=== PATIENT | female | born 1970 | race Caucasian/White ===

== ENCOUNTER → 2016-06-26 | Outpatient (CLI) | payer BC ==
[~2016-06-26] VITALS: Ht 152.4 cm; Wt 68.0 kg
[~2016-06-26] MED LIST: BENTYL 10 MG CA10 M1 PO; IBUPROFEN 200200 M1 PO; NABUMETONE 500500 M1 PO; NEURONTIN 300300 M1 PO; OMEPRAZOLE40 MG PO; TRAMADOL 50 MG50 MG PO; TRILEPTAL150 MG PO; TRILEPTAL300 MG PO; VOLTAREN GEL 1100 G1 TOP
--- NOTE | ~2016-06-26 | HPC ---
[address] [address] PAIN MANAGEMENT CONSULTATION Name: LESTER MOORE Room #: REG Sanjiv Brown.#: [id number] Admission: 06/26/16 Attend Phys: Joao Bravo DO Discharge: Date of : 68 Report #: [id number] THIS REPORT FOR: //name// CC: DARLIN Bravo The patient is a very pleasant 45-year-old female I had seen back in the summer and fall for RSD of the right lower extremity. Ultimately, we had progressed to a spinal cord stimulator trial. The last time I saw the patient on 02/25/2016, we removed spinal cord stimulator trial from which she had an excellent relief. I referred her to Dr. Cruz at [facility] for implantation of a spinal cord stimulator. Spinal cord stimulator was ultimately implanted. Dr. Cruz implanted a right L4 and L5 dorsal root ganglion nerve stimulator lead with a St. Sudeep IPG. The patient returns to the pain clinic, per Dr. Cruz for consideration for diagnostic right S1 selective nerve root block. The patient notes that the stimulator is not really affording good relief of her right foot pain. Pain is primarily in the lateral aspect of the right foot, this is compatible with an S1 distribution. Physical exam is otherwise relatively unchanged from my last visit. Pleasant 45-year-old female, BMI is 29.7 kilograms per meter squared. Subjective pain score is 3/10. Vital signs, modestly elevated blood pressure 141/98, pulse 72, respirations are 14. She is wearing a walking boot on the right leg. ASSESSMENT: RSD right lower extremity, status post right L4 and L5 dorsal root ganglion stimulating leads with St. Sudeep IPG implanted on 05/27/2016 with nominal efficacy. RECOMMENDATIONS: I agree with right S1 diagnostic nerve root block. PROCEDURE: After written and informed consent was obtained, the patient was taken to the fluoroscopy suite and placed in prone position. After sterile prep and drape, skin wheal with Xylocaine was raised lateral to the S1 neural foramen. A 20-gauge Tuohy needle was placed to contact the lateral aspect of the S1 neural foramen on AP projection. A needle was then withdrawn and generally repositioned in a slightly medial direction until able to walk through the neural foramen. The patient denied any paresthesia. 1 mL of Omnipaque was injected, which showed spread on AP and lateral projections within the caudal canal and along the right S1 nerve root. This was followed with 1 mL of 0.5% preservative-free bupivacaine plus 1 mL of 1.5% preservative-free Xylocaine 1:200,000 epinephrine. After 2 mL of local anesthetic mix was injected, the needle was removed. The area was cleansed, Band-Aids applied. The patient was allowed to ambulate to recovery room, monitored for an appropriate period of [address] [address] PAIN MANAGEMENT CONSULTATION Name: LESTER MOORE Room #: REG STACEY Lay#: [id number] Admission: 06/26/16 Attend Phys: Joao Bravo DO Discharge: Date of : 68 Report #: [id number]. She noted really no change in baseline pain on discharge. Followup is in 1 week to reevaluate. <ELECTRONICALLY SIGNED> By: Joao Bravo DO 06/30/16 1228 1600 0350 Joao Bravo DO /nt
[2016-06-26 13:15] VITALS: BP 109/78
== END | disposition home or self-care (01) ==
LOC: PAIN 06-25 08:25
DX: G90.521 Complex regional pain syndrome I of right lower limb (principal); M25.571 Pain in right ankle and joints of right foot; Z96.89 Presence of other specified functional implants

== ENCOUNTER → 2017-03-05 | Outpatient (CLI) | payer BC ==
[~2017-03-05] VITALS: Ht 152.4 cm; Wt 65.6 kg
[~2017-03-05] MED LIST changes: +NORCO 7.5-3251 EACH PO
--- NOTE | ~2017-03-05 | HPC ---
[facility] [place] [address] PAIN MANAGEMENT CONSULTATION Name: LESTER MOORE Room #: REG STACEY Lay#: [id number] Admission: 03/05/17 Attend Phys: Joao Bravo DO Discharge: Date of : 68 Report #: [id number] THIS REPORT FOR: //name// CC: DARLIN Bravo DATE OF SERVICE: 03/05/2017 The patient is covered is a very pleasant 46-year-old female typically treated for right lower extremity RSD requiring high-risk complex medication management. Not seen since July. She returns to pain clinic today, we had a prolonged visit today reviewing interval history. When I last saw the patient, she had had a right L4 and L5 dorsal root ganglion spinal cord stimulator in place with really nominal efficacy. I had her return to Dr. Arnaud Cruz's care, he placed a 3rd dorsal root ganglion at S1. The patient notes unfortunately this has not afforded any further relief and in fact seems to be exacerbating pain. She is having increasing pain, right lower extremity with the burning dysesthesia actually coming up her leg now (prior been mostly in the foot). She has pressure on the foot significantly exacerbates pain, rates it 8 on VAS. She has followed up with Dr. Cruz and they are planning on proceeding with another Nevro high frequency spinal cord stimulator trial (she had excellent relief when I had performed a spinal cord stimulator trial 01/2016, she was actually sent to Dr. Cruz for implantation of same). Dr. Cruz had suggested they trial a surgical implanted percutaneous lead for several weeks to get longer duration trial before moving on with implantation of the generator. The patient has continued to take oxcarbazepine 300 mg b.i.d., relatively maximum therapeutic dose, gabapentin 300 mg 3 tablets at bedtime, 900 mg, I did discuss with the patient, we can certainly increase this dose to 1200 or 1500 mg. She uses tramadol for breakthrough pain with dwindling efficacy. PHYSICAL EXAMINATION: Shows pleasant 46-year-old female, BMI is 28.2 kilograms per meter squared. Vital signs stable as noted in the EMR. Passive rotation of the hip does exacerbate little bit of pain on the right. She has somewhat of an antalgic gait. She is wearing a walking post-surgical boot (CAM-type walker device) on the right foot. With gait changes have some increasing pain in the back and hip. Has hyperpathia within about the right foot. ASSESSMENT: Right lower extremity requiring high-risk complex medication management. [facility] [address] [place] [address] PAIN MANAGEMENT CONSULTATION Name: LESTER MOORE Room #: REG [facility].#: [id number] Admission: 03/05/17 Attend Phys: Joao Bravo DO Discharge: Date of : 68 Report #: [id number] RECOMMENDATION: 1. We will increase gabapentin from 900 to 1500 mg. Continue oxcarbazepine unchanged at 600 mg daily. 2. We will offer some hydrocodone for breakthrough pain. Hydrocodone 7.5/325, dispensed 60 tablets a half to one tablet q.6 hours as needed for pain, to be used on a nondaily basis, continue tramadol 50 mg q.6h., 100 tablets with 2 refills. 3. Lumbar sympathetic block is accomplished today. 4. Follow up in 2 weeks for reevaluation and consideration for repeat lumbar sympathetic block if indicated, if she gets incremental relief with this injection. PROCEDURE NOTE: A right lumbar sympathetic block. After written informed the patient was taken to fluoroscopy suite, placed in prone position. After sterile prep and drape, skin was raised. A 22-gauge Chiba needle was placed to contact the inferior aspect of the right L2 vertebral body and walked anteriorly. Once needle was anterior to the vertebral body and approximately 1:[address] across the lateral aspect towards the midline on AP projection, negative aspiration was accomplished. A 1 mL of Omnipaque was injected, which showed spread within the sympathetic gutters followed with 5 mL of 0.5% bupivacaine plus 5 mL of 1.5% preservative-free Xylocaine 1:100,000 epinephrine and 40 mg triamcinolone. Needle was removed. The area was cleansed, Band-Aids applied. The patient monitored for an appropriate period of time showed good and stable condition. Fluoroscopy time was under 20 seconds. <ELECTRONICALLY SIGNED> By: Joao Bravo DO 03/06/17 0657 1537 2102 Joao Bravo DO /nt
[2017-03-05 10:52] VITALS: BP 119/72
== END | disposition home or self-care (01) ==
LOC: PAIN 07:05
DX: G90.521 Complex regional pain syndrome I of right lower limb (principal); Z79.899 Other long term (current) drug therapy

== ENCOUNTER → 2017-06-26 | Outpatient (CLI) | payer OTHER ==
[~2017-06-26] VITALS: Ht 152.4 cm; Wt 67.2 kg
[~2017-06-26] MED LIST changes: +CRESTOR10 MG PO; +HYDROCODONE-AP1 EAC6 PO; +NAMENDA 5 MG TAB5 M1 PO
--- NOTE | ~2017-06-26 | HPC ---
[facility] [place] [address] PAIN MANAGEMENT CONSULTATION Name: LESTER MOORE Room #: REG STACEY Lay#: [id number] Admission: 06/26/17 Attend Phys: Joao Bravo DO Discharge: Date of : 68 Report #: [id number] THIS REPORT FOR: //name// CC: DARLIN Bravo HISTORY OF PRESENT ILLNESS: The patient is a very pleasant 46-year-old female being treated for right lower extremity RSD, requiring complex medication management. The patient was originally seen in consultation on 11/15/2016. She had a right lower extremity neuropathic pain secondary to trauma to the right foot in 01/2015. Subsequent surgery with ongoing neuropathic pain. We have done a number of lumbar sympathetic blocks with nominal efficacy and in fact did a lumbar sympathetic block at last visit with really only short-term transient improvement of symptoms, 20% relief for 2 weeks. The patient had an excellent relief, right lower extremity, with a midline high frequency Nevro stimulator. Concerningly, I had referred her to Dr. Bismark Cruz for implantation of same; he elected to implant a dorsal root ganglion stimulators, he did L4-L5 with really no efficacy, sent her back for consideration for a midline epidural placed spinal cord stimulator; he simply added a S5 dorsal root ganglion lead. Unfortunately, the patient notes that utilizing any of these leads exacerbates pain. She presents to the pain clinic today as one might expect frustrated. She rates the pain an 8 on a VAS. Notes pain is exacerbated with any pressure on her foot. Today, she is still wearing a Cam type walker of the right ankle and foot. She has pain that is spreading up to the leg. No history of arthritis. BMI is 28.9 kilograms per meter squared. Vital signs were stable as noted in the EMR. Has not fallen in the last 3 months. Medication list was reconciled. Reviewed our opiate consent to treat contract. Long discussion with the patient today about therapeutic options. She was seen from approximately 10:35 to 11:00 a.m., greater than 50% of this 25-minute visit was spent counseling the patient. Apparently, Dr. Cruz has interceded with the patient's insurance company and actually had a [id number] review and they will not authorize the placement of a midline thoracolumbar paddle lead for spinal cord stimulation. They require the patient to be "post-back surgery." In truth, the patient has had 2 discrete back surgeries with implantation of the dorsal root ganglion leads and in fact I believe the lumbar sympathetic block and epidural blocks are all coded as "back surgery." Nonetheless, I think this would be in the patient's better interest. 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 She is loathe to use opiate analgesics for pain. She does use a little tramadol. She is on moderate dose of gabapentin at 1200 mg at bedtime; higher doses caused a soporific effect. She [address] [address] PAIN MANAGEMENT CONSULTATION Name: LESTER MOORE Room #: REG STACEY Lay#: [id number] Admission: 06/26/17 Attend Phys: Joao Bravo DO Discharge: Date of : 68 Report #: [id number] is on a therapeutic dose of oxcarbazepine (600 mg daily, 300 mg b.i.d.). Uses tramadol 50 mg up to 4 times a day. Long discussion with the patient today about therapeutic option. We have elected to start the patient on Namenda 5 mg at bedtime for about a week and then b.i.d. I have taken the liberty of writing for 60 tablets with 5 refills; however, I told the patient after 1 month if she is having some efficacy and no negative effects, she can go to t.i.d. for a week or so and then up to q.i.d. If she does use any of these higher doses, I suggested she call the pain clinic back and we will call her pharmacy with a renewed prescription for Namenda 5 mg either 90 or 120 tablets with 3-4 refills. The patient was discharged today in good and stable condition after a prolonged visit, greater than 50% of the time spent counseling the patient. <ELECTRONICALLY SIGNED> By: Joao Bravo DO 06/29/17 1026 1312 0033 Joao Bravo DO /nt
[2017-06-26 10:29] VITALS: BP 136/84
== END ==
LOC: PAIN 06:56
DX: G90.521 Complex regional pain syndrome I of right lower limb (principal); M79.2 Neuralgia and neuritis, unspecified; Z79.899 Other long term (current) drug therapy

== ENCOUNTER → 2017-11-26 | Outpatient (CLI) | payer OTHER ==
[~2017-11-26] VITALS: Ht 152.4 cm; Wt 67.6 kg
--- NOTE | ~2017-11-26 | HPC ---
[facility] [place] [address] PAIN MANAGEMENT CONSULTATION Name: LESTER MOORE Room #: REG STACEY Brown.#: [id number] Admission: 11/26/17 Attend Phys: Joao Bravo DO Discharge: Date of : 68 Report #: [id number] THIS REPORT FOR: //name// CC: DARLIN REYNOLDS Physician staff Joao Bravo DATE OF SERVICE: 11/26/2017 The patient is a very pleasant 47-year-old female being treated for CRPS type 1 right lower extremity neuropathic pain, requiring complex medication management. The patient was last seen in the Pain Clinic on 06/26/2017. Continued on gabapentin 300 mg tablets, 4 at bedtime; oxcarbazepine 300 mg b.i.d., Namenda 5 mg b.i.d. She has a prescription for tramadol, but relief is not efficacious. She has been using Advil, but it causes gastroesophageal reflux. She returns to the Pain Clinic today. We had a prolonged visit from 5210-7130; greater than 50% of this 25+ minute visit was spent counseling the patient, reviewing therapeutic options. The patient had a successful spinal cord stimulator trial, but through a long and arduous course, was referred to Dr. Arnaud Cruz who implanted right L4 and L5 dorsal root ganglion stimulators. These afforded no efficacy. She returned to him. He implanted a 3rd S1 dorsal root ganglion, again with no efficacy. Ultimately, she returned to Dr. Cruz. He did a midline trial, which this time did not afford efficacy and ultimately he explanted all devices. He has spoken to her about consideration of a deep brain stimulator for neuropathic pain. This may actually be a good option. She tells me that she is now starting to get some paresthesia, burning dysesthesia in the right hand, may be spread of RSD type symptoms. The patient is planning on going on a mission trip to [place] with her [employer] group. 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 Following this, she is planning to travel to [facility] to have a large family union with her 's family. She presented to the Pain Clinic today for options regarding managing chronic neuropathic burning pain in her right foot. She states standing and walking exacerbates the pain significantly. Medications may afford some relief. She notes her pain averages a 6 on a VAS. Unfortunately, her functional assessment tool is quite impacted . PHYSICAL EXAMINATION: Shows a pleasant 47-year-old female, BMI is 29.1 kg/[place] [address] PAIN MANAGEMENT CONSULTATION Name: LESTER MOORE ANN Room #: REG [facility].#: [id number] Admission: 11/26/17 Attend Phys: Joao Bravo DO Discharge: Date of : 68 Report #: [id number] . Vital signs stable. Alert and oriented to person, place and time, judged to be a reasonable historian. She is wearing a walking post-surgical boot on right lower extremity. This tends to help with hyperpathia and allodynia. She does have significant neuropathic pain, lateral aspect, right foot and distal lower leg. ASSESSMENT: Neuropathic pain, right lower extremity, complex regional pain syndrome type 1. Having failed multiple therapies including lumbar sympathetic block, spinal cord stimulator, dorsal root ganglion stimulators. RECOMMENDATIONS: 1. We will continue current membrane stabilizing agents including gabapentin, Trileptal and Namenda (NMDA receptor agonist) to help with neuropathic pain. 2. After long discussion with the patient, we have elected to start hydrocodone 5/325, 1/2-1 tablet after dinner and at bedtime. I talked about concerns with opiate habituation, tolerance, dependence and constipation. The patient has a high index of awareness about opiate habituation. She is adamant that she does not want to become "habituated" to opiate analgesics. We reviewed that she Powell 5/325 is a very low dose narcotic; even if she took 2 tablets a day that will be 10 mg morphine marv-equivalents per day, taken for 30 days, she may have some opiate withdrawal symptoms, though they would likely be nominal if present at all. Symptoms may include rhinorrhea, muscle aching, piloerection, diaphoresis, anxiety, tachycardia. If taken on a non-daily basis, 0-2 tablets per day , I suspect habituation issues will be significantly diminished. We elected to start on this course of medication. I have given her prescription for hydrocodone 5/325, directions to take up to 1 tablet b.i.d., 60 tablets with the second prescription release in 4 weeks. We have agreed that she will use this agent on a non-daily basis and at the lowest dose in order to help attenuate extreme pain episodes. I suspect that these 2 prescriptions will last the patient 3-4 months. We will have her follow up with one of my [facility] pain partners. I suggested that she continue our conversations with Dr. Arnaud Cruz regarding deep brain stimulation for neuropathic pain. <ELECTRONICALLY SIGNED> By: Joao Bravo DO 11/27/17 0654 1427 0131 Jaoo Bravo DO /nt
[2017-11-26 12:56] VITALS: BP 119/70
== END ==
LOC: PAIN 07:27
DX: G57.91 Unspecified mononeuropathy of right lower limb (principal); G90.521 Complex regional pain syndrome I of right lower limb; Z79.899 Other long term (current) drug therapy

== ENCOUNTER → 2018-04-06 | Outpatient (CLI) | payer OTHER ==
[~2018-04-06] VITALS: Ht 152.4 cm; Wt 69.9 kg
--- NOTE | ~2018-04-06 | HPC ---
[facility] [place] [address] PAIN MANAGEMENT CONSULTATION Name: LESTER MOORE Room #: REG LILIANSanjiv Brown.#: [id number] Admission: 04/06/18 Attend Phys: Ihsan Bravo DO Discharge: Date of : 68 Report #: [id number] THIS REPORT FOR: //name// CC: DARLIN Horne DPM Physician staff DATE OF SERVICE: 04/06/2018 CHIEF COMPLAINT: Tension headache, right lower extremity complex regional pain syndrome. HISTORY OF PRESENT ILLNESS: As you know, the patient is a 47-year-old female who has been treated by [facility] for an extended period of time for complex regional pain syndrome involving the right foot and ankle. She has been treated with conservative treatment options via Dr. Joao Bravo, my partner for years. She has had multiple spinal cord stimulators each of which have failed for reasons unknown. She was started on medication management and is seeing some benefit with the therapy. She returns today with pain radiating from the cervical region over the head in a typical tension style headache. She also reports a headache with orgasm, which is typically a benign sexual headache either due to vascular issues or tension in the cervical region. She has been referred back to our clinic with a prescription stating cervical radiculopathy versus occipital neuralgia from her neurologist. There is no request for any type of intervention. She returns today to discuss options for treatment for what appears to be an easily diagnosed tension headache. ALLERGIES: No known drug allergies. CURRENT MEDICATIONS: Tramadol, oxcarbazepine, Namenda, gabapentin, lovastatin. SOCIAL HISTORY: The patient denies she is a smoker, denies IV or illicit drug use, denies any chronic alcohol use. She reports herself as disabled. She is unaccompanied today. PHYSICAL EXAMINATION: VITAL SIGNS: Blood pressure 136/81, pulse 70, respiratory rate 16 and unlabored. The patient is 100% on room air. Height 5 feet tall, weight 151 pounds, BMI calculated 30.1. GENERAL: Well-developed, well-nourished, well-hydrated exogenously obese 47-year-old female, appears her stated age. She is in no acute distress, awake, alert and oriented x 3, pain is rated at 5/10. HEENT: Normocephalic, atraumatic. Pupils equal, round, reactive to light. [facility] [address] [place] [address] PAIN MANAGEMENT CONSULTATION Name: LESTER MOORE ANN Room #: REG [facility]#: [id number] Admission: 04/06/18 Attend Phys: Ihsan Bravo DO Discharge: Date of : 68 Report #: [id number] Extraocular muscles are intact. Sclerae nonicteric without injection. NEUROLOGIC: Cranial nerves 2-12 grossly intact. Speech is fluent. The patient deemed a fair historian. LUNGS: Clear, no wheeze, rhonchi or rales. CARDIOVASCULAR: Regular. No appreciable gallop or rub. ABDOMEN: Soft, nontender, nondistended. EXTREMITIES: Show no clubbing, no cyanosis. There is noted skin color changes and temperature change of right foot when compared to left. The patient is currently in a walking boot for "protection." MUSCULOSKELETAL: The patient has tenderness to palpation over the upper cervical region. Deep palpation of the third occipital nerve causes tension style headache. There are multiple tender points, no specific trigger points in the trapezius muscles. No cervical radiculopathy noted. No positive Spurling's testing. No neural tensioning positive testing. ASSESSMENT: 1. Cervicalgia. 2. Tension headache. 3. Third occipital neuralgia. 4. Benign sexual headache. 5. Complex regional pain syndrome of the right lower extremity. 6. Chronic intractable pain. PLAN: 1. The patient returns today in followup visit where she is describing a classic tension headache. She has pain that begins in the upper cervical region, radiates over the top of the head in typical third occipital fashion with distribution along the lesser and greater occipital nerves. The patient also describes a benign sexual headache, having headaches occur during orgasm but not postcoitally. These are typically due to either vascular issues treated with propranolol or more of a tension type headache treated with anxiolytics and possible muscle relaxants as well as potential interventional treatments. We discussed this with the patient today. Certainly, the addition of the Cymbalta started by Dr. Emerson is an option. The patient has not initiated this therapy. She wishes to discuss further with us today. We discussed each treatment option for tension headache including changing her sleep style as she is an abdominal sleeper and this would lead to tension on the paraspinal musculature of cervical region, adjustments to either side sleeping or back sleeping would be more appropriate and would improve her cervicalgia quite rapidly. I understand this is a difficult thing for people to do to change her sleeping positions, but this would greatly alleviate her current symptoms. We discussed myofascial release acupuncture therapy and chiropractic manipulation as well as traction techniques. This would be an easy and conservative way of treating her symptoms and would resolve her tension headache relatively rapidly. This could be looked into on an outpatient basis. We [address] [address] PAIN MANAGEMENT CONSULTATION Name: LESTER MOORE Room #: REG [facility]#: [id number] Admission: 04/06/18 Attend Phys: Ihsan Bravo DO Discharge: Date of : 68 Report #: [id number] discussed initiating the Cymbalta therapy at 30 mg dose for 7 days and escalating to 60 mg dose for 7 days. If no improvement in symptoms, no side effects, continue de-escalation to either 90 or 120 where we tend to gain more neuropathic pain benefits due to the norepinephrine reuptake inhibition though we may see improvement at 30 and 60 mg due to its anxiolytic effects. We also discussed today the possibility of undergoing third occipital nerve blocks to improve the tension headache she is currently experiencing this and trigger points may be successful in alleviating symptoms. If this is ineffective, discussed with her neurologist about the possibility of undergoing Botox injections in the paraspinal musculature of the cervical region alleviating the contraction of the paraspinal musculature. After reviewing the risks and benefits of all proposed treatment options, the patient chose to continue with our current medications for her CRPS and to add the Cymbalta at 30 mg dose for 7 days, then increase to 60 mg and possibly further. 2. The patient was provided prescription of oxcarbazepine 300 mg dose 1 tab p.o. b.i.d., #60, 5 refills. 3. The patient was provided prescription of gabapentin 300 mg dose, she is to take 1200 mg p.o. at bedtime given #120, 5 refills. 4. The patient will continue on the Namenda 5 mg dose 1 tab p.o. b.i.d., #60, 5 refills, all of which have been added for CRPS pain. 5. The patient will begin Cymbalta provided by her neurologist 30 mg dose for the next 7 days, then increase to 60 mg dose, assuming no improvement in her typical symptoms. If at 60 mg dose for 1 week, no improvement, no side effects, recommend increase to 90 mg for 1 week. If no improvement, no side effects, then continue to 120. 6. We did discuss with the patient her benign sexual headache. This appears to be related to tension though I cannot rule out vascular issues other than to indicate that recent imaging shows no concerning vascular issues. Propranolol could be added to the patient's list for her benign sexual headache though I feel that if she utilizes the medications for tension headache, she should see improvement in symptoms. At this point, we have to determine no interventional treatments are necessary and the patient does not wish to undergo them today if she can alleviate her symptoms with traditional medication management. By: [id number] Ihsan Bravo DO /nt
[2018-04-06 10:47] VITALS: BP 136/81
== END ==
LOC: PAIN 07:00
DX: G90.521 Complex regional pain syndrome I of right lower limb (principal); G44.209 Tension-type headache, unspecified, not intractable; G89.4 Chronic pain syndrome; M54.2 Cervicalgia; M54.81 Occipital neuralgia; Z79.899 Other long term (current) drug therapy